=== PATIENT | male | born 1940 | race Two or more races ===

== ENCOUNTER 2018-03-14 07:31 | Outpatient (CLI) | payer OTHER ==
[~2018-03-14 07:31] MED LIST: ALTACE5 MG PO; NORVASC5 MG PO; ZETIA10 MG PO; ZOCOR40 MG PO
== END 2018-03-14 07:41 | disposition home or self-care (01) ==
LOC: NUCLEAR 07:31
DX: I20.8 Other forms of angina pectoris (principal)
CPT/HCPCS: 78452; 93017; A9500